=== PATIENT | male | born 1975 | race African-American/Black ===

== ENCOUNTER → 2019-12-08 11:54 | Outpatient (CLI) | payer OTHER, SELFPAY ==
--- NOTE | ~2019-12-08 | XR_ITS ---
XR lumbar spine 2-3V DATE: 12/08/2019 12:47 INDICATION: Low back pain for 2 days TECHNIQUE: AP, lateral, coned lateral lumbosacral views COMPARISON: None FINDINGS: Normal alignment of the lumbar spine. There are 6 functional lumbar vertebrae. 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 No recent fracture or bone destruction is ev ident. The included lower thoracic and lumbar pedicles are intact. There is mild degenerative disc di sease. No spondylolisthesis. Normal sacroiliac joints. IMPRESSION: Mild degenerative disc disease Chronic minimal anterior wedging of the first lumbar vertebral body Reviewed, dictated and finalized at location B. [employer]IC[employer]
== END ==
PROVIDERS: PCP Emergency Medicine; Visit Provider Emergency Medicine
DX: M54.5 Low back pain (principal); M51.36 Other intervertebral disc degeneration, lumbar region
CPT/HCPCS: 72100

== ENCOUNTER 2022-08-26 10:18 | Emergency (ER) | payer OTHER, SELFPAY ==
[2022-08-26 10:28] VITALS: BP 138/104; PULSE 76; RESP 16; TEMP 36.4; O2SAT 98
--- NOTE | 2022-08-26 11:02 | ED.EXTPRO ---
HPI - Extremity Problem General Chief complaint: Extremity Problem,Nontraumatic Stated complaint: Right Shoulder Pain Time Seen by Provider: 08/26/22 11:02 Source: patient, RN notes reviewed and old records reviewed Mode of arrival: ambulatory Limitations: no limitations History of Present Illness HPI Narrative: 47-year-old male presents to the [facility] with complaints of right shoulder pain after waking up yesterday. Has full range of motion. Tenderness noted along the trapezius muscle. Denies any midline tenderness. No numbness or tingling in extremities. No chest pain or abdominal pain. Positive radial pulse. Sensation intact and all 5 fingers. Full range motion the elbow and the wrist. Strong buoy tender. Capillary refill under 2 seconds Related Data Allergies Allergy/AdvReac Type Severity Reaction Status Date / Time No Known Allergies Allergy Unknown Verified 08/26/22 10:31 Review of Systems Review of Systems: All systems reviewed & are unremarkable except as noted in HPI and below Constitutional: Constitutional: Reports no additional constitutional complaints, Denies chills and Denies fever(s) Eyes: Eyes: Reports no additional eye complaints ENT: Reports system reviewed and no additional complaints, except as documented Cardiovascular: Cardiovascular: Reports no additional cardiovascular complaints Respiratory: Respiratory: Reports no additional respiratory complaints Gastrointestinal: Gastrointestinal: Reports no additional gastrointestinal complaints Musculoskeletal: Musculoskeletal: Reports as per HPI and Reports arthralgias (Right shoulder) Integumentary/Breasts: Skin/Breast: Reports system reviewed and no additional complaints, except as docu Neurologic: Reports system reviewed and no additional complaints, except as documented Psychiatric: Psychiatric: Reports no additional psychiatric complaints Allergic/Immunologic: Allergic/Immunologic: Reports no additional allergic/immunologic complaints PMFSH Comments At the time of my signature, I reviewed and agree with the nursing past medical, surgical, social, and family history. There is no relevant family history pertinent to the patient complaint. Exam Const: General: healthy appearing, comfortable, no acute distress, well developed, alert and well nourished Nutritional Appearance: well nourished Orientation/consciousness: patient oriented x3 Limitations: no limitations HENMT: Head: normal to inspection Ears: external ears normal Face/Nose/Sinus: Normal external nose present and Normal nares present Eyes: General: appearance normal, both eyes and all related structures Conjunctivae: conjunctivae normal Pupils: Equal, round and reactive pupils present Neck: Neck: normal visual inspection, full ROM, no lymphadenopathy and no meningeal signs Chest: Chest palpation & inspection: normal inspection of the chest Resp: Effort & Inspection: normal respiratory effort and no use of accessory muscles Auscultation: clear to auscultation bilaterally, no crackles, no rales, no rhonchi and no wheezes Cardio: Rate: regular rate Rhythm: regular rhythm Back/Spine/Pelvis: Cervical Spine: cervical ROM normal and No Cervical spine tenderness Thoracic/Lumbar Spine: thoracic and lumbar spine normal to inspection and thoraco-lumbar ROM normal Skin: General skin exam: normal color Rashes: no rashes Wounds: no wounds Neuro: General: patient oriented x3, moves all extremities, no meningeal signs and no focal motor deficits Cranial nerves: Yes Equal, round and reactive pupils present Speech: normal speech Gait exam (Neuro): Normal gait present Extrem: General: normal to inspection, full ROM and capillary refill normal Right upper extremity: shoulder/upper arm tenderness (Trapezius muscle, posterior joint area) and normal ROM; no swelling, no abrasions, no lacerations, no ecchymosis, no crepitus, no deformity and no unusual warmth Psych: Appearance: grossly normal and
== END 2022-08-26 11:13 | disposition home or self-care (01) ==
PROVIDERS: Emergency Provider Nurse Practitioner
DX: S46.811A Strain of other muscles, fascia and tendons at shoulder and upper arm level, right arm, initial encounter (principal); X58.XXXA Exposure to other specified factors, initial encounter
CPT/HCPCS: 99213; G0463

== ENCOUNTER 2024-02-21 00:58 | Emergency (ER) | payer OTHER, SELFPAY ==
[2024-02-21 01:00] VITALS: BP 152/98; PULSE 72; RESP 15; TEMP 36.4; O2SAT 98
--- NOTE | 2024-02-21 01:12 | ED.BACK ---
HPI - Back Pain/Injury General Chief Complaint: Back Pain/Injury Stated Complaint: pain between shoulder blades Time Seen by Provider: 02/21/24 01:05 Source: patient Mode of arrival: ambulatory Limitations: no limitations History of Present Illness HPI Narrative: This is a 48-year-old male who presents to the ED with chief complaint of interscapular back pain onset today. Patient reports that he was [place] the slots [place] day [place] the [place] and when he lay down tonight he felt sharp pains in the upper back. Reports that the pain is specifically worse with certain positions and with bending his neck down. Denies injury, trauma, headache, fevers, chills, nausea, vomiting, numbness, weakness. He has not tried any [id number] pain medications or any measures to control pain prior to coming to the ER. Related Data Allergies Allergy/AdvReac Type Severity Reaction Status Date / Time No Known Allergies Allergy Unknown Verified 02/21/24 01:04 Review of Systems Review of Systems: All systems as dictated in HPI Exam Narrative: GENERAL: Well-appearing, well-nourished, and in no acute distress. HEAD: Normocephalic, atraumatic. EYES: PERRLA and EOMI. ENT: Nares clear, no rhinorrhea or epistaxis. Mucous membranes moist. Oropharynx without tonsillar hypertrophy exudate or other lesions. NECK: Supple. No adenopathy or masses. No meningeal signs CHEST: No respiratory distress. Clear to auscultation. No wheezes rales or rhonchi HEART: Regular rate and rhythm. No murmur heard. Normal peripheral pulses. ABDOMEN: Soft, nontender, nondistended, normal active bowel sounds. MSK: Normal range of motion. No edema. Mild paraspinal tenderness to the thoracic and cervical spine. Tenderness follows the trapezius muscle distribution. SKIN: Warm, dry, no rash. NEURO: Alert and oriented x3. No focal deficits. PSYCH: Normal mood and affect. Course Vital Signs Vital signs: Vital Signs Temperature 97.6 F 02/21/24 01:00 Pulse Rate 72 02/21/24 01:00 Respiratory Rate 15 02/21/24 01:00 Blood Pressure 152/98 H 02/21/24 01:00 Pulse Oximetry 98 02/21/24 01:00 Oxygen Delivery Room Air 02/21/24 01:00 Temperature 97.6 F 02/21/24 01:00 Pulse Rate 72 02/21/24 01:00 Respiratory Rate 15 02/21/24 01:00 Blood Pressure 152/98 H 02/21/24 01:00 Pulse Oximetry 98 02/21/24 01:00 Oxygen Delivery Room Air 02/21/24 01:00 MDM - Back Pain/Injury MDM Narrative Medical decision making narrative: This is a 48-year-old male who presents to the ED with chief complaint of interscapular back pain onset this evening. Patient played the slots all day at the [employer] and is now having tightness in his back. Vitals are normal. Exam shows mild tenderness along the trapezius muscle distribution. No indication for any imaging at this time. No red flag signs for back pain. No new meningeal signs. Pt will be discharged in stable condition. Return precautions given and supportive measures discussed. Pt is understanding and agreeable with plan for discharge and follow-up with PCP. Discharge Plan Discharge Clinical Impression: Trapezius muscle strain Patient Disposition: Home, Self-Care Condition: Stable Instructions: Antibiotic Form, Back Pain (ED) Additional Instructions: Your exam today is overall reassuring. This is likely a trapezius strain which will get better over the next couple weeks. Please take naproxen twice per day. Cyclobenzaprine as needed for muscle spasms. Please follow-up with your primary care doctor regarding musculoskeletal pain. If you have any new or worsening symptoms please return to the ER for further evaluation. Prescriptions: New cyclobenzaprine 10 mg tablet 10 mg PO HS PRN (Reason: muscle spasm) Qty: 10 0RF naproxen 500 mg tablet 500 mg PO BID PRN (Reason: pain) Qty: 30 0RF No Action baclofen 10 mg tablet 10 mg PO TID PRN (Reason: muscle pain) Qty: 15
[2024-02-21] MEDS: NAPROXEN 500 MG TABLET PO (01:23)
== END 2024-02-21 01:25 | disposition home or self-care (01) ==
LOC: ANHED 01:16
PROVIDERS: Emergency Provider Physician Assistant
DX: S46.811A Strain of other muscles, fascia and tendons at shoulder and upper arm level, right arm, initial encounter (principal); X50.9XXA Other and unspecified overexertion or strenuous movements or postures, initial encounter
CPT/HCPCS: 99283; A9270